=== PATIENT | male | born 1980 | race Caucasian/White ===

== ENCOUNTER 2020-04-01 12:25 | Emergency (ER) | payer OTHER ==
[~2020-04-01] VITALS: Ht 175.3 cm; Wt 100.0 kg
[2020-04-01] MEDS ORDERED: SODIUM CHLORIDE 0.9% 1,000ML IVBOLUS ONE (12:30)
[2020-04-01 12:53] LABS: BASOPHILS % (AUTO) 0 % (0-1); EOSINOPHILS % (AUTO) 0 % (1-7); LYMPHOCYTES % (AUTO) 7 % (22-44); MEAN CORPUSCULAR HEMOGLOBIN 29.7 pg (27.5-34.5); MEAN CORPUSCULAR HGB CONC 34.7 g/dL (33.2-36.2); MEAN PLATELET VOLUME 8.7 fL (7.4-10.4); MONOCYTES % (AUTO) 3 % (2-9); NEUTROPHILS % (AUTO) 90 % (42-75); PLATELET COUNT 188 x10^3/uL (130-400); RED BLOOD COUNT 5.35 x10^6/uL (4.38-5.82); RED CELL DISTRIBUTION WIDTH 13.5 % (9.4-14.8)
[2020-04-01 12:54] LABS: MD NO
[2020-04-01 13:05] LABS: ALANINE AMINOTRANSFERASE 30 U/L (12-78); ALBUMIN 4.3 g/dL (3.4-5.0); ANION GAP 9 mmol/L (5-15); CHLORIDE 113 mmol/L (98-107); CREATININE 0.98 mg/dL (0.7-1.3)
--- NOTE | 2020-04-01 13:06 | NUR ---
Maryse Lee () primary contact [phone]
[2020-04-01 13:07] LABS: ALKALINE PHOSPHATASE 49 U/L (45-117); BILIRUBIN,TOTAL 0.6 mg/dL (0.2-1.0); TOTAL PROTEIN 7.5 g/dL (6.4-8.2)
--- NOTE | 2020-04-01 13:20 | NUR ---
updated by phone, okd by pt. Fluids infusing, [id number].
[2020-04-01 13:29] LABS: MICROSCOPIC NOT IND
[2020-04-01 14:24] VITALS: BP 131/71
== END 2020-04-01 14:26 | disposition home or self-care (01) ==
LOC: ED 14:00
DX: K52.9 Noninfective gastroenteritis and colitis, unspecified (principal)
CPT/HCPCS: 36415; 80053; 81003; 83690; 85025; 96360; 99283; J7030